=== PATIENT | male | born 1950 | race Caucasian/White ===

== ENCOUNTER 2019-09-07 21:48 | Inpatient (IN) | payer OTHER, MEDICARE ==
[~2019-09-07] VITALS: Ht 185.4 cm; Wt 89.8 kg
--- NOTE | 2019-09-07 22:00 | NUR ---
Patient BIB pvt amb from [facility], for admission to GPS/M[facility]. A/OX4. Speech is clear, speaks in complete sentences. No acute neuro deficits. Denies any SI at this time. Respiratory even and unlabored, no cough no sob. Denies any cp, palpitations. Denies any n/v/d. Patients belongings removed from room, safety precautions implemented per protocol.
--- NOTE | 2019-09-07 22:50 | NUR ---
Report given to
--- NOTE | 2019-09-07 22:59 | NUR ---
Patient transported to MHU in stable condition.
[2019-09-07 23:00] VITALS: BP 132/80
--- NOTE | 2019-09-07 23:45 | NUR ---
DR. FINNEY WAS CALLED TO RECONCILED PATIENT'S MEDICATION. AWAITING FOR A CALL BACK. WILL CONTINUE TO MONITOR.
[2019-09-08] MEDS ORDERED: ACETAMINOPHEN 325 MG TABLET PO PRN (00:15)
[2019-09-08] MEDS ORDERED: ZOLPIDEM 5 MG TABLET PO PRN (00:15)
[2019-09-08] MEDS ORDERED: MAGNESIUM HYDROXIDE 30 ML LIQUID UDC PO PRN (00:15)
[2019-09-08] MEDS ORDERED: LORAZEPAM 1 MG TABLET PO PRN (00:15)
[2019-09-08] MEDS ORDERED: MAG HYDROX/AL HYDROX/SIMETH 30 ML LIQUID UDC PO PRN (00:15)
--- NOTE | 2019-09-08 03:26 | NUR ---
Social Work Individual Therapy: willow worker met with patient for brief counseling. willow worker assessed for patients level of suicidality. Patient denies SI and stated that what he did was a "mistake" and that it will never happen again. Patient presented tearful while this typewriter aligner was conversating with patient. Patient stated that "he feels that he is a burden to his family" and that "he is not good enough". This typewriter aligner provided mental health referrals to patient such as [facility] Crisis Line ( ), [place] Suicide Prevention Lifeline ( ) , [facility] Substance Abuse Helpline ( ). willow worker encouraged patient to contact either family, hotline, or a professional if patient were to have suicidal thoughts. This typewriter aligner also encouraged patient to alert either this typewriter aligner or the nursing staff.
--- NOTE | 2019-09-08 03:27 | NUR ---
received to care, at 2300, from the emergency room, on a 72 hour hold for danger to self, a transfer from [facility]. according to the hold, chart, and interview, he lives at home, with his . he has been increasingly depressed over the last few months. he attempted to kill himself, by overdosing on oxycontin and trazadone. he was intubated at [facility] on 08/28, for respiratory failure. this was his second attempt in the last 2 months, the first one was with a pistol, but his family took it away, before he could harm himself. he was treated at [facility], then released back home. upon arrival on the unit, he denied being suicidal, stating he had no idea how much his family would be affected by this, that he would never try anything like that, again. he agreed to contract for safety. pt was advised of his hold. pts rights booklet was provided. he then was assited with a shower, and went to sleep. as of now, he continues to sleep. no distress noted. will continue to monitor closely.
--- NOTE | 2019-09-08 06:00 | NUR ---
slept 4.75 hours, total. continues to sleep. no distress noted.
[2019-09-08 07:30] VITALS: BP 108/69
[2019-09-08] MEDS ORDERED: Medication Not On Formulary EA (Telmisartan (Micardis) 1 TAB) PO SCH (09:00)
[2019-09-08] MEDS: AMLODIPINE 10 MG TABLET PO SCH (09:00)
[2019-09-08] MEDS: VALSARTAN 160 MG TABLET PO SCH (11:00)
--- NOTE | 2019-09-08 11:34 | NUR ---
Received patient , awake alert and oriented. Patient is refusing his B/P medications because he has not been on blood pressure medications for along time and does not feel he needs them. Patients VS have been stable with no medication so far. Patient admits to having some depression but denies SI at this time. Socializing well with other patients and in a upbeat mood this am. Continuing to monitor closely for SI or any changes in behavior. No acute distress noted and patient has been participating with group.
--- NOTE | 2019-09-08 12:42 | NUR ---
UR Note: STAGE DRIVER ASSIGNED IS; JAMAL Berg. HIS DIRECT LINE IS [phone]. This typewriters functional tester called and left a voicemail.
[2019-09-08] MEDS ORDERED: TEMAZEPAM 15 MG CAPSULE PO PRN (13:00)
[2019-09-08] MEDS: OLANZAPINE 5 MG TABLET PO SCH ×2 (13:26→20:36)
--- NOTE | 2019-09-08 13:46 | NUR ---
Social Work Initial Discharge: Patient currently resides with his and family at [address] [place] [address];([phone]). Per pt, he would like to return back home upon discharge. This check writer salesperson spoke with patient's Deneen ([phone]) and would like him back home. cargo worker will work with the patient and the MD regarding appropriate discharge planning. cargo worker will form a safe and proper discharge.
--- NOTE | 2019-09-08 13:47 | NUR ---
Social Work Family Contact: green end worker spoke with patient's Deneen ([phone]) to gather collateral information. This script writer explained treatment plan and discharge plan.
[2019-09-08 16:01] VITALS: BP 120/60
[2019-09-08] MEDS: DIVALPROEX ER 500 MG TAB.SR.24H PO SCH (17:11)
--- NOTE | 2019-09-08 19:30 | NUR ---
RECEIVED PT AWAKE, ALERT AND ORIENTEDX4. PT IN NO ACUTE DISTRESS. PLEASANT WHEN APPROACHED. NO SIGNS OF AGITATION. NO SUICIDAL IDEATION. WILL CONTINUE TO MONITOR.
[2019-09-08 20:30] VITALS: BP 97/68
--- NOTE | 2019-09-09 06:34 | NUR ---
PT SLEPT 6.45 H. PT COOPERATIVE WITH CARE. PRESCRIBED MEDICATION GIVEN AND PT TOLERATED IT WELL. NO AGITATION NOTED. NO SUICIDAL IDEATION. SAFETY AND COMFORT PROVIDED. WILL ENDORSE TO INCOMING NURSE FOR CONTINUITY OF CARE.
[2019-09-09 07:51] VITALS: BP 141/73
[2019-09-09] MEDS: DIVALPROEX ER 500 MG TAB.SR.24H PO SCH ×2 (08:01→16:42)
[2019-09-09] MEDS: OLANZAPINE 5 MG TABLET PO SCH ×2 (08:02→20:27)
[2019-09-09] MEDS: AMLODIPINE 10 MG TABLET PO SCH (08:02)
[2019-09-09] MEDS: VALSARTAN 160 MG TABLET PO SCH (08:02)
--- NOTE | 2019-09-09 11:06 | NUR ---
Patient received this am , awake, alert and oriented. In day room asking for breakfast. Upon a face to face, patient denies SI. Patient also is agreeable with the new medications, and was willing to take the medication for blood pressure today. This patient has multiple small request during the morning but otherwise has no behavioral issues or episodes noted of depression. Continuing to round frequently and monitor for SI and depression.
--- NOTE | 2019-09-09 13:27 | NUR ---
Social Work Individual Therapy: alteration worker met with patient for brief counseling. alteration worker assessed for patients level of suicidality. Patient denies SI and stated that he feels "better" and that this is all a mistake. Patient stated that he would never do this again because now he understands. This junior underwriter provided mental health referrals to patient such as [facility] Crisis Line ( ), [place] Suicide Prevention Lifeline ( ) , [facility] Substance Abuse Helpline ( ). alteration worker encouraged patient to contact either family, hotline, or a professional if patient were to have suicidal thoughts. This junior underwriter also encouraged patient to alert either this junior underwriter or the nursing staff.
--- NOTE | 2019-09-09 15:16 | NUR ---
Social Work Firearms: Campaign Management Specialist completed and submitted a [employer] firearms report for [address] grave disability certification. A copy of report has been placed in patient chart.
[2019-09-09 16:54] VITALS: BP 113/60
[2019-09-09 20:11] VITALS: BP 108/57
--- NOTE | 2019-09-10 06:20 | NUR ---
Patient slept about a total of 6.30 hours last night.
[2019-09-10 07:30] VITALS: BP 118/68
[2019-09-10] MEDS: OLANZAPINE 5 MG TABLET PO SCH ×2 (08:58→20:05)
[2019-09-10] MEDS: VALSARTAN 160 MG TABLET PO SCH (08:58)
[2019-09-10] MEDS: DIVALPROEX ER 500 MG TAB.SR.24H PO SCH ×3 (08:58→16:07)
[2019-09-10] MEDS: AMLODIPINE 10 MG TABLET PO SCH (08:59)
[2019-09-10] MEDS ORDERED: PNEUMOCOCCAL 23-VAL P-SAC VAC 0.5 ML VIAL IM ONE (09:30)
[2019-09-10] MEDS: DICLOFENAC SODIUM 1% TOP SCH ×3 (13:14→20:05)
[2019-09-10 16:41] VITALS: BP 93/50
[2019-09-10 20:26] VITALS: BP 92/50
--- NOTE | 2019-09-11 06:19 | NUR ---
Patient slept about a total of 5.0 hours last night.
[2019-09-11 07:30] VITALS: BP 110/69
[2019-09-11] MEDS: VALSARTAN 160 MG TABLET PO SCH (08:54)
[2019-09-11] MEDS: AMLODIPINE 10 MG TABLET PO SCH (08:55)
[2019-09-11] MEDS: DIVALPROEX ER 500 MG TAB.SR.24H PO SCH ×2 (08:55→17:12)
[2019-09-11] MEDS: OLANZAPINE 5 MG TABLET PO SCH ×2 (08:55→21:18)
[2019-09-11] MEDS: DICLOFENAC SODIUM 1% TOP SCH ×4 (08:56→21:42)
[2019-09-11 15:45] VITALS: BP 87/52
--- NOTE | 2019-09-11 23:00 | NUR ---
received to care, pleasant upon approach, interacting well with male peers. denies SI, or any desire to harm self. compliant with medications, and staff direction. as of 2299, he appears asleep. no distress noted. will continue to monitor closely.
--- NOTE | 2019-09-12 06:12 | NUR ---
slept 6.0 hours, total. is now awake. assisted with am care,and shower. no distress noted.
[2019-09-12 07:30] VITALS: BP 111/63
--- NOTE | 2019-09-12 07:59 | NUR ---
Received patient awake and alert ambulatory. kept clean and dry at all times. safety and comfort provided. will continue to monitor.
[2019-09-12] MEDS: AMLODIPINE 10 MG TABLET PO SCH (08:39)
[2019-09-12] MEDS: OLANZAPINE 5 MG TABLET PO SCH ×2 (08:39→20:58)
[2019-09-12] MEDS: DIVALPROEX ER 500 MG TAB.SR.24H PO SCH ×2 (08:39→17:16)
[2019-09-12] MEDS: VALSARTAN 160 MG TABLET PO SCH (08:43)
[2019-09-12] MEDS: DICLOFENAC SODIUM 1% TOP SCH ×4 (08:44→20:59)
--- NOTE | 2019-09-12 09:15 | NUR ---
Social Work Family Contact: family day care worker contacted patient's Deneen ([phone]) and notified that patient will be discharged tomorrow. Per Deneen, she will pickle pumper patient at 1PM
--- NOTE | 2019-09-12 09:15 | NUR ---
Social Work PC Hearing Notification: pony worker contacted patient's Deneen, ([phone]) and notified patients probable cause of hearing today.
--- NOTE | 2019-09-12 14:07 | NUR ---
Social Work Coordination of Care: progress worker contacted [facility] and spoke with Breann ([phone]) event promotions coordinator who stated that she will reach out to the patient and will schedule a date with the patient. This data analyst report writer sent in patient's H & P psychiatric notes and progress notes.
[2019-09-12 15:17] VITALS: BP 107/61
--- NOTE | 2019-09-12 15:43 | NUR ---
Social Work Substance Abuse Intervention: Patient was provided with a brief substance abuse intervention and referred to [facility] ([phone]), [facility] ([phone]), and [facility] ([phone]).
[2019-09-12] MEDS: MULTIVIT, IRON, MIN NO. 8, FA TABLET PO SCH (17:17)
[2019-09-12 20:51] VITALS: BP 98/57
--- NOTE | 2019-09-13 06:00 | NUR ---
slept 5.75 hours, total. is now awake. assisted with am care,and shower. no distress noted.
[2019-09-13 07:30] VITALS: BP 103/68
--- NOTE | 2019-09-13 08:24 | NUR ---
Social Work Individual Therapy: yarn worker met with patient for brief counseling. yarn worker assessed for patients level of suicidality. Patient denies SI and stated that he no longer feels SI. Patient stated that his "life is more important". This va underwriter provided mental health referrals to patient such as [facility] Crisis Line ( ), [place] Suicide Prevention Lifeline ( ) , [facility] Substance Abuse Helpline ( ).
--- NOTE | 2019-09-13 08:24 | NUR ---
Social Work Discharge Note: Patient will be discharged back home [address] [place] [address]; ([phone]). Patients Deneen ([phone]) is aware and agreeable with discharge plan. Per Deneen, she will pick patient up at 1PM. Patient is aware and agreeable with discharge plans. Upon discharge, patient appear to be calm, cooperative and happy to be going home. Patient denies suicidal and homicidal ideation. Patient will follow up with Dr. German (extractor loader and unloader) at [address], [place] [address]; ([phone]) on September 15 at 9:30AM (via phone meeting) and will follow up with (psychiatrist) Dr. Diggs at [address], [place] [address]; ([phone]) on September 14 at 10:30 PM (via phone meeting). Due to COVID-19, patients outpatient appointments will be via phone call. workers compensation claims examiner contacted [facility] [place] [address] [place] [address]; spoke with Breann ([phone]) special projects coordinator who stated that patient can resume back to the program on Thursday at 8AM. Patient was provided with outpatient mental health resources to [facility] Crisis Line , and the National Suicide Prevention Lifeline . Patient was provided with a brief substance abuse intervention and referred to [facility] ([phone]), [facility] ([phone]), and [facility] ([phone]). Patient presents with euthymic mood and congruent affect.
[2019-09-13] MEDS: MULTIVIT, IRON, MIN NO. 8, FA TABLET PO SCH (08:46)
[2019-09-13] MEDS: DIVALPROEX ER 500 MG TAB.SR.24H PO SCH (08:46)
[2019-09-13] MEDS: OLANZAPINE 5 MG TABLET PO SCH (08:47)
[2019-09-13] MEDS: VALSARTAN 160 MG TABLET PO SCH (08:47)
[2019-09-13 08:48] VITALS: BP 103/68
[2019-09-13] MEDS: AMLODIPINE 10 MG TABLET PO SCH (08:48)
[2019-09-13] MEDS: DICLOFENAC SODIUM 1% TOP SCH ×2 (08:52→13:00)
--- NOTE | 2019-09-13 11:25 | NUR ---
Patient will be discharge around 1pm to home. Patient will be pick and shovel man by Deneen via private transport in stable condition. Patient is aware and agreeable with discharge plans. Upon discharge, patient appear to be calm, cooperative and happy to be going home. Patient denies suicidal and homicidal ideation. Patient will follow up with Dr. German (night time nanny) at [address], [place] [address]; ([phone]) on September 15 at 9:30AM (via phone meeting) and will follow up with (psychiatrist) Dr. Diggs at [address], [place] [address]; ([phone]) on September 14 at 10:30 PM (via phone meeting). Due to COVID-19, patients outpatient appointments will be via phone call. warm in worker contacted [facility] at [address] [place] [address]; spoke with Breann ([phone]) resident services coordinator who stated that patient can resume back to the program on Thursday at 8AM. Patient was provided with outpatient mental health resources to [facility] Crisis Line , and the National Suicide Prevention Lifeline . Patient was provided with a brief substance abuse intervention and referred to [facility] ([phone]), [facility] ([phone]), and [facility] ([phone]). Patient verbalize that he is happy to go back home. Denies suicidal thoughts.
--- NOTE | 2019-09-13 13:12 | NUR ---
Patient discharge to home in stable condition via private transport with , Deneen . Medication prescription given. Discharge instruction and ff up consult given. Patient verbalize understanding. Patient thankful for the care given. Addendum: 09/13/19 at 1353 by ANEESH WOLF RN RN Patient left around 1pm
== END 2019-09-13 14:01 | disposition home or self-care (01) | DRG 885 ==
LOC: ER 21:51 → GPS 22:39
PROVIDERS: ADMIT Psychiatry & Neurology Psychiatry; ATTEND Internal Medicine
DX: F31.64 Bipolar disorder, current episode mixed, severe, with psychotic features (principal); R45.851 Suicidal ideations; T40.2X2D Poisoning by other opioids, intentional self-harm, subsequent encounter; T42.6X2D Poisoning by other antiepileptic and sedative-hypnotic drugs, intentional self-harm, subsequent encounter; I49.8 Other specified cardiac arrhythmias; I10 Essential (primary) hypertension; E78.5 Hyperlipidemia, unspecified; E11.9 Type 2 diabetes mellitus without complications; Z87.01 Personal history of pneumonia (recurrent); Z91.5 Personal history of self-harm
CPT/HCPCS: 36415; 80164; 90732; 93005; A4663